=== PATIENT | female | born 1970 | race Caucasian/White ===

== ENCOUNTER 2021-08-30 00:01 | Day surgery (SDC) | payer OTHER, SELFPAY ==
--- NOTE | 2021-06-20 15:41 | PC.NURSE ---
Addendum entered by Zuly Pérez RN 08/22/21 10:36: PT TO REPORT TO WAITING ROOM AT 0615 ON 08/30/21 FOR SURGERY AT 0815. Original Note: Report to the Outpatient Waiting Room, entrance under the green pavilion located off [facility], at time _0700__ on date _07/05/21_. OR Time: _0900___. - You and your visitor will be asked a series of questions to screen for COVID 19 for your protection. - A mask is required within the hospital. - Only one visitor is allowed at this time. Patient visitors will be guided where to wait when not with patient. Preoperative COVID Testing Requirements: No COVID Test needed if: (proof is required; if not received patient will have Rapid Test prior to entry) - Patient has received COVID Vaccine at least 14 days prior to procedure date or - Patient has positive COVID test result within last 90 days of surgery date. COVID Test needed if above criteria is not met If not COVID vaccinated a COVID test must be conducted within 72 hours of surgery and patient is asked to isolate self from time of testing until procedure. You will go to the [facility] for your COVID testing. The [facility] is located at the corner of [address] [facility]. You will only be called if COVID results are positive and your surgeon may reschedule your elective surgery date. Patients may have clear liquids (water, carbonated beverages, clear teas, apple juice) until 3 hours prior to surgery (0600) with a maximum of 20 ounces. - No food from midnight until time of surgery - Infants may have breast milk until 4 hours before surgery, infant formula 6 hours prior to surgery. - Children will be allowed to drink immediately following surgery. If applicable, please bring a bottle or sippy cup to assist with drinking. Juice, water, soda, and popsicles are readily available. For infants on formula, please bring formula the day of surgery. Pacifiers are allowed. Take the following medications with a SIP of water the morning of surgery: _CITALOPRAM, GABAPENTIN__ Medications to discontinue per physician __ALL VITAMINS & SUPPLEMENTS _PER DR. OROSCO Date to take last dose____06/27/21 Please no make-up, nail somali, hairspray, perfume, deodorant, or body powder the day of surgery. No jewelry (including any body piercings) or valuables the day of surgery, leave them at home. Please take a shower or bath the night before, or the morning of, surgery with an antibacterial soap. Wear comfortable, loose fitting clothing. Children are encouraged to wear pajamas. - Jewelry must be removed prior to entering the operating room. Rings and piercings that are not removed may be cut off. - The hospital will not accept responsibility for valuables. - Please leave all valuables, including medications, at home the day of surgery. If you are going home after surgery, a licensed guard driver must drive you home. - NO public transportation without another adult. - We recommend that an adult stay with you for 24 hours following discharge. - We also recommend that you do not drive, make important decision, drink alcoholic beverages, or take any drugs that were not prescribed by your health care provider for at least 24 hours after your discharge time. For Pediatric surgeries, we recommend two adults accompany the child home (only one inside the building at this time). Follow any additional instructions given to you from your surgeon. Telephone instructions given to PT and asked if any additional questions and then verbalized understanding. Patient advised to call surgeon office or pre surgery nurse liaison [phone] if any additional questions.
--- NOTE | 2021-06-28 07:54 | PM.IMHP ---
H&P: HPI History of Present Illness Date/Time: 06/28/21 07:54 51 yo with a symptomatic vaginal bulge and JOANIE Chief Complaint: POP/JOANIE Review of Systems Review of Systems: All systems reviewed & are unremarkable except as noted in HPI and below [facility] Past Medical History Medical History (Updated 06/28/21 @ 07:56 by Rigo Bennett MD) Anxiety Depression Hiatal hernia HTN (hypertension) Obesity Spastic paraplegia Social History Social History Smoking status: Never smoker Second hand tobacco smoke exposure: No Alcohol intake: never Substance use: never Substance use type: does not use Gender identity (if verbalized by the patient): Female Spiritual care concerns: No Meds Home Medications and Allergies Home Medications Medication Instructions Recorded Confirmed Type baclofen 20 mg PO HS PRN 06/20/19 06/20/21 History baclofen 700 mcg INTRATHECAL DAILY 06/20/19 06/20/21 History cholecalciferol (vitamin D3) 2,000 unit PO QAM 06/20/19 06/20/21 History [Vitamin D3] losartan 100 mg PO HS 06/20/19 06/20/21 History multivitamin 1 tablet PO DAILY 06/20/19 06/20/21 History oxybutynin chloride 5 mg PO BID 06/20/19 06/20/21 History ashwagandha root extract 1,600 mg PO BID 06/20/21 06/20/21 History citalopram 20 mg QAM 06/20/21 06/20/21 History gabapentin See Rx Instructions .ROUTE .COMPLEX 06/20/21 06/20/21 History magnesium 400 mg PO BID 06/20/21 06/20/21 History threonine (bulk) [L-Threonine] 400 ea MISCELLANEOUS HS 06/20/21 06/20/21 History Allergies Allergy/AdvReac Type Severity Reaction Status Date / Time cephalexin Allergy Unknown Rash Verified 06/20/21 15:02 Exam Narrative: NAD normal breathing cystocele to introitus rectocele to introitus good apical support + urethral mobility Assessment and Plan Assessment and plan (1) Cystocele: Status: Acute Assessment and Plan: cystocele repair (2) Rectocele: Code(s): N81.6 - Rectocele Status: Acute Assessment and Plan: rectocele repair (3) JOANIE (stress urinary incontinence, female): Code(s): N39.3 - Stress incontinence (female) (male) Status: Acute Assessment and Plan: urehtral sling
--- NOTE | 2021-08-24 14:44 | PM.IMHP ---
H&P: HPI History of Present Illness Date/Time: 08/24/21 14:44 51 yo with POP and JOANIE Chief Complaint: POP/JOANIE Review of Systems Review of Systems: All systems reviewed & are unremarkable except as noted in HPI and below [facility] Past Medical History Medical History (Updated 08/24/21 @ 14:46 by Rigo Bennett MD) Anxiety Depression Hiatal hernia HTN (hypertension) Obesity Spastic paraplegia Social History Social History Smoking status: Never smoker Second hand tobacco smoke exposure: No Alcohol intake: never Substance use: never Substance use type: does not use Gender identity (if verbalized by the patient): Female Spiritual care concerns: No Meds Home Medications and Allergies Home Medications Medication Instructions Recorded Confirmed Type baclofen 20 mg PO HS PRN 06/20/19 08/22/21 History baclofen 700 mcg INTRATHECAL DAILY 06/20/19 08/22/21 History cholecalciferol (vitamin D3) 2,000 unit PO QAM 06/20/19 08/22/21 History [Vitamin D3] losartan 100 mg PO HS 06/20/19 08/22/21 History multivitamin 1 tablet PO DAILY 06/20/19 08/22/21 History oxybutynin chloride 5 mg PO BID 06/20/19 08/22/21 History ashwagandha root extract 1,600 mg PO BID 06/20/21 08/22/21 History citalopram 20 mg QAM 06/20/21 08/22/21 History gabapentin See Rx Instructions .ROUTE .COMPLEX 06/20/21 08/22/21 History magnesium 400 mg PO BID 06/20/21 08/22/21 History threonine (bulk) [L-Threonine] 400 ea MISCELLANEOUS HS 06/20/21 08/22/21 History Allergies Allergy/AdvReac Type Severity Reaction Status Date / Time cephalexin Allergy Unknown Rash Verified 08/22/21 10:25 Exam Narrative: cystocele and rectocele to the introitus + urethral mobility Assessment and Plan Assessment and plan (1) Cystocele: Status: Acute (2) Rectocele: Code(s): N81.6 - Rectocele Status: Acute (3) JOANIE (stress urinary incontinence, female): Code(s): N39.3 - Stress incontinence (female) (male) Status: Acute Additional Plan cystocele/rectocele repair, urethal sling
[2021-08-30] VITALS (10 sets, daily range): BP systolic 99–145; BP diastolic 68–94; PULSE 67–88; RESP 10–16; TEMP 36.2–36.6; O2SAT 97–100
--- NOTE | 2021-08-30 07:09 | WPDHPUPDATE1 ---
History and Physical Update Update Date/Time: 08/30/21 07:09 History and Physical has been reviewed, including an updated exam of the patient. There are NO changes in the patient's condition. Risks, benefits, and alternatives have been discussed and questions answered. Patient agrees to proceed with procedure.
[2021-08-30] MEDS: LACTATED RINGERS 1,000 ML 30 ML IV CONT ×2 (07:18→10:23)
[2021-08-30] MEDS: KETOROLAC 15 MG/ML VIAL (*BKC) IV PUSH (07:19)
[2021-08-30] MEDS: ACETAMINOPHEN 500 MG TABLET 1000 MG PO (07:20)
--- NOTE | 2021-08-30 07:52 | P.PNAN_ITS ---
Anes - Initial Pre Proc Eval Procedure: Operation Date: 08/30/21 08:30 Proposed Procedures p Cystocele Repair, Rectocele Repair, - Rigo Bennett MD s Urethral Sling - Rigo Bennett MD Date/Time: 08/30/21 07:52 Surgeon: Rigo Bennett MD Pre Op Diagnosis: cystocele, rectocele, stress incontinence Patient Data Age: 51 Gender: F Height: 1.66 m Weight: 86.5 kg Last Vital Signs Temp 36.2 C L 08/30/21 06:45 Pulse 67 08/30/21 06:45 Resp 16 08/30/21 06:45 BP 140/90 08/30/21 06:45 Pulse Ox 100 08/30/21 06:45 Allergies Allergy/AdvReac Type Severity Reaction Status Date / Time cephalexin Allergy Intermediate Rash Verified 08/30/21 06:56 Home Medications Medication Instructions Recorded Confirmed Type baclofen 20 mg PO HS PRN 06/20/19 08/30/21 History baclofen 700 mcg INTRATHECAL DAILY 06/20/19 08/30/21 History cholecalciferol (vitamin D3) 2,000 unit PO QAM 06/20/19 08/30/21 History [Vitamin D3] losartan 100 mg PO HS 06/20/19 08/30/21 History multivitamin 1 tablet PO DAILY 06/20/19 08/30/21 History oxybutynin chloride 5 mg PO BID 06/20/19 08/30/21 History ashwagandha root extract 1,600 mg PO BID 06/20/21 08/30/21 History citalopram 20 mg QAM 06/20/21 08/30/21 History gabapentin See Rx Instructions .ROUTE .COMPLEX 06/20/21 08/30/21 History magnesium 400 mg PO BID 06/20/21 08/30/21 History threonine (bulk) [L-Threonine] 400 ea MISCELLANEOUS HS 06/20/21 08/30/21 History Patient hx anesthesia problems: none Family hx anesthesia problems: none Results Review: All pre-operative results and documents have been reviewed as part of the pre-operative evaluation. [facility] Past Medical History Medical History Anxiety Depression Hiatal hernia HTN (hypertension) Obesity Spastic paraplegia Social History Social History Smoking status: Never smoker Second hand tobacco smoke exposure: No Alcohol intake: never Substance use: never Substance use type: does not use Living arrangements: with family Gender identity (if verbalized by the patient): Female Spiritual care concerns: No Anes - Eval Final PreProcedure Day of Procedure 08/30/21 07:52 Patient weight: obese Heart: regular rate and rhythm Airway: Mallampati scale class II Neurological: alert and oriented ASA classification: III Emergent: no Anesthetic plan: proceed Anesthesia type and monitoring: general ETT and standard monitoring Results Review: All pre-operative results and documents have been reviewed as part of the pre-operative evaluation. Informed Consent: The patient's anesthetic plan and its attendant risks and benefits were discussed with the patient/family/POA. Questions were solicited and answers provided to the satisfaction of the patient/family/POA.
[2021-08-30] MEDS: levoFLOXacin 500 MG/D5W 100 ML 500 MG/100 ML BAG 100 MG IVPB (08:15)
[2021-08-30] MEDS: BUPIVACAINE/EPINEPHRINE 0.25% 10 ML VIAL 30 ML INFILTRATE (09:05)
--- NOTE | 2021-08-30 10:04 | W.PM.PROC2 ---
Procedure Note - Detailed Date of Procedure 08/30/21 Pre-op Diagnosis cystocele, rectocele, female perineal laxity, stress incontinence Post-op Diagnosis same Procedure Performed Rectocele repair Cystocele repair Perineal repair Mid urethral sling Cystoscopy Surgeon Rigo Bennett MD Anesthesia general Indications This along with pelvic organ prolapse as well as stress incontinence. She has good apical support. She presents today for a vaginal procedure for prolapse. She understands risks of bleeding, infection, damage to the bowel, damage to the bladder or ureters, recurrence of prolapse, dyspareunia, mesh related complications including exposure and extrusion, pain. Other intraoperative and postoperative complications. She agrees to proceed Findings Cystocele, rectocele, a female perineal laxity, stress incontinence Description of Procedure She has correctly identified. Informed consent obtained. She from the operating room. She was given general anesthesia. She was prepped and draped in a sterile fashion. She was given appropriate perioperative antibiotics. A time-out performed. All pressure points were padded to ensure safety. I placed Baldwin catheter. I placed a [place] retractor. I 1st focused on the rectocele. I grasped the rectocele with [place]is clamps. I infiltrated subcutaneous tissues with local mixed with saline. I made a midline vaginal incision. I dissected the mucosa off the rectum laterally and towards the apex. A great care not to injure the rectum or underlying structures. I then performed a plication rectocele repair. I used a series of 0 Vicryl suture. There was excellent support of the rectocele. I trimmed excess vaginal mucosa. I closed the vaginal mucosa running 2 0 Vicryl suture after assuring hemostasis. I then turned my attention to the cystocele. I grasped the cystocele with [place]is clamps. I infiltrated subcutaneous tissues with local mixed with saline. I made a midline vaginal incision on the anterior vaginal wall. I dissected the mucosa off the underlying fascial structures laterally and towards the apex. I then performed a plication cystocele repair with a series of interrupted sutures of 0 Vicryl. I trimmed minimal excess vaginal mucosa. I closed the vaginal mucosa running 2-0 Vicryl suture. I then turned my attention to the perineum. She had quite a bit of perineal laxity. I infiltrated the conner-shaped area of skin on the perineum with local anesthesia. I removed this area of skin. I then performed a plication perineorrhaphy again with a series of interrupted Vicryl sutures. I used a 2-0 Vicryl to close the mucosa. I was overall very happy with the support of the cystocele, rectocele and perineum. There was excellent hemostasis. I then turned my attention towards the sling. I marked out the inner thigh incisions. I anesthetized the skin and made those incisions. I then anesthetized the anterior vaginal wall over the mid urethra. I made a 1 cm incision. I dissected out laterally taking great care not to injure the refilled vaginal wall. I passed the helical trocars. First on the left. Then on the right. From the thigh incision towards the vaginal incision. The sling was connected to the trocars. The sling was brought out the thigh incisions. Attention was seen appropriately. I cut and removed the excess plastic sheaths. I then closed the incision with 2-0 Vicryl. I then performed cystoscopy. She had mild trabeculations. There was no surgical artifact or injury to the bladder urethra. Ureteral orifices were seen to excrete clear yellow urine. There is no artifact or tumors in the bladder. I then cut the excess sling material. I closed incision with glue. I again ensured hemostasis. I put in a vaginal packing to be removed in our. I left the bladder partially full. She was awakened transferred to PACU in stable condition. Estimated Blood Loss -100.0 Urine Output -250
--- NOTE | 2021-08-30 10:53 | SUR.PHASEI ---
Vaginal packing removed at [address] Bennett's order.
== END 2021-08-30 12:10 | disposition home or self-care (01) ==
PROVIDERS: Visit Provider Urology
PROC: (CPT 57240; principal; 2021-08-30 08:30)
PROC: (CPT 57260; 2021-08-30 08:30)
DX: N81.4 Uterovaginal prolapse, unspecified (principal); N39.3 Stress incontinence (female) (male); I10 Essential (primary) hypertension; F41.8 Other specified anxiety disorders; G11.4 Hereditary spastic paraplegia; E66.9 Obesity, unspecified; Z68.31 Body mass index [BMI] 31.0-31.9, adult
CPT/HCPCS: 57260; 57288; A9270; C1771; J1200; J1885; J1956; J2250; J2405; J2704; J3010; J7030; J7120